=== PATIENT | female | born 1995 | race Caucasian/White ===

== ENCOUNTER 2017-03-09 16:41 | Emergency (ER) | payer MEDICAID ==
[~2017-03-09] VITALS: Ht 177.8 cm; Wt 106.6 kg
[~2017-03-09 16:41] MED LIST: BACTRIM DS 8001 TA1 PO; CEPHALEXIN500 M1 PO; Motrin,Rufen800 MG PO
[2017-03-09 18:42] LABS: BILIRUBIN NEGATIVE (NEGATIVE); BLOOD TRACE-INTACT (NEGATIVE); CLARITY SL CLOUDY (CLEAR); COLOR YELLOW (YELLOW); GLUCOSE NEGATIVE (NEGATIVE); KETONE NEGATIVE (NEGATIVE); LEUKO ESTERASE NEGATIVE (NEGATIVE); NITRITE NEGATIVE (NEGATIVE); SPECIFIC GRAVITY 1.025 (1.005-1.030); UROBILINOGEN 0.2 E.U./dl (0.2-1.0)
[2017-03-09 18:48] LABS: BACTERIA 1+
== END 2017-03-09 19:07 | disposition home or self-care (01) ==
LOC: ED 16:41
PROVIDERS: Registered Nurse
DX: O26.891 Other specified pregnancy related conditions, first trimester (principal); Z3A.13 13 weeks gestation of pregnancy; R10.9 Unspecified abdominal pain; M54.5 Low back pain